=== PATIENT | female | born 1990 | race Caucasian/White ===

== ENCOUNTER → 2018-08-03 12:17 | Outpatient (CLI) | payer OTHER, SELFPAY ==
[2018-08-04 06:07] LABS: HEPATITIS B SURFACE AG Negative (Negative); Hepatitis A AB, Total Negative (Negative); Hepatitis A IgM Antibody Negative (Negative); Hepatitis B Core AB IgM Negative (Negative); Hepatitis B Core Ab Total Negative (Negative); Hepatitis C Ab <0.1 s/co ratio (0.0-0.9)
[2018-08-04 13:23] LABS: Hep B Surface Antibodies Reactive (.)
== END ==
DX: R94.5 Abnormal results of liver function studies (principal)
CPT/HCPCS: 36415; 86704; 86705; 86706; 86708; 86709; 86803; 87340

== ENCOUNTER → 2018-10-04 | Outpatient (CLI) | payer OTHER, SELFPAY ==
[2018-10-04 08:10] VITALS: BMI 22.1
[2018-10-04 17:36] LABS: Chlamydia Trachomatis by PCR Negative (Negative); Neisserai gonorrhoeae by PCR Negative (Negative); Probe Check PASS; Sample Adequacy Control PASS; Specimen Processing Control PASS
== END | disposition home or self-care (01) ==
LOC: LABSPEC 13:45
PROVIDERS: Referring Provider Nurse Practitioner Women's Health; Visit Provider Nurse Practitioner Women's Health
DX: N87.1 Moderate cervical dysplasia (principal); Z11.3 Encounter for screening for infections with a predominantly sexual mode of transmission
CPT/HCPCS: 87491; 87591; 87624; 88175; G0145

== ENCOUNTER → 2018-11-22 12:37 | Outpatient (CLI) | payer OTHER, SELFPAY ==
--- NOTE | 2018-11-22 | IMM_PTH ---
PATIENT: EDWIN WALL LOC: [facility] U#:[id number] AGE/SX: 34/F ROOM: RE11/22/[address]: Dr. Anika Damon MD : 1990 BED: DIS: SPEC #: [id number] RECD: 11/23/18 13:34 STATUS: ELISHA REQ #: [id number] YANG: 11/22/18 00:[address]: Anika Damon DEPT: IMMUNOHISTOCHEMISTRY RECD BY: Kassy Bronson ENTERED: 11/23/18 13:36 SP TYPE: IMMUNO OTHR DR: No Primary Care Phys Tissues: A - Uterine cervix, NOS B - Uterine cervix, NOS Procedures: p16 (initial) KI-67 (add) PHYSICIAN & INSTITUTION [place] [id number] SPECIMEN INFORMATION: Tissue Source: A - Cervix 2 o'clock, B - Cervix 4 o'clock Clinical Info: Abnormal pap Specimen Number: [id number] A & B CPT code: 44418 x2, 04655 x2 METHODOLOGY: Deparaffinized sections of prefer/formalin-fixed tissue or PAP/DQ stained slides are incubated with monoclonal/polyclonal antibodies/oligonucleotide probes. Localization is made via biotin free immunoperoxidase method. Appropriate controls are performed and reacted as expected. Results on target cell population are indicated in the following table: RESULTS: ANTIBODY / CLONE RESULT Block A P16 (E6H4) positive, focal and patchy* Ki-67 (30-9) positive, low * focal minimal block staining is also noted. Block B P16 (E6H4) positive, focal and patchy Ki-67 (30-9) positive, low These tests were developed and their performance characteristics determined by [facility]. They may not have been cleared or approved by the [place]. Food and Drug Administration. The FDA has determined that such clearance or approval is not necessary. INTERPRETATION: A. Cervix, 2 o'clock, biopsy: Mild squamous dysplasia. B. Cervix, 4 o'clock, biopsy: Mild squamous dysplasia. SJ:gila 11/24/18 Case has been reviewed in consultation with Dr. Hastings who concurs with the above diagnosis. IDC:AM
--- NOTE | 2018-11-22 | CER_PTH ---
PATIENT: EDWIN WALL [facility][id number] AGE/SX: 34/F ROOM: RE11/22/[address]: Dr. Anika Damon MD : 1990 BED: DIS: SPEC #: [id number] RECD: 11/22/18 12:34 STATUS: ELISHA CHAYA #: [id number] YANG: 11/22/18 00:[address]: Anika Damon DEPT: SURGICAL PATHOLOGY RECD BY: Hetal Shrestha ENTERED: 11/22/18 13:18 SP TYPE: CERV OT DR: Roxana Primary Care Phys Tissues: A - Uterine cervix, NOS B - Uterine cervix, NOS Procedures: Surgery Specimen Level IV HEADER OPERATION: Colposcopy PRE-OP DIAGNOSIS: Abnormal pap TISSUE SUBMITTED: A. 2 o'clock, B. 4 o'clock MICROSCOPIC DIAGNOSIS A. 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 See comment. B. 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 Chronic inflammation. See comment. JAYSHREE:gila 11/23/18 COMMENT A & B. Immunohistochemistry ([id number]) for surrogate HPV marker (p16) supports the above diagnosis. This case has been reviewed in consultation with Dr. Hastings who concurs with the above diagnosis. MICROSCOPIC DESCRIPTION Slides are reviewed. GROSS DESCRIPTION A - Received in fixative is one container labeled with the patient's name and designated 2 o'clock. The specimen consists of one irregular fragment of light faith soft tissue that measures 0.3 x 0.3 x 0.1 cm. The specimen is totally submitted in one cassette. B - Received in fixative is one container labeled with the patient's name and designated 4 o'clock. The specimen consists of one irregular fragment of light faith soft tissue that measures 0.5 x 0.2 x 0.1 cm. The specimen is totally submitted in one cassette. / SJ:gila 11/22/18 TC: CPT: 26044 x2
[2018-11-22 08:57] VITALS: BMI 21.9
== END ==
PROVIDERS: Referring Provider Obstetrics & Gynecology; Visit Provider Obstetrics & Gynecology
DX: N87.0 Mild cervical dysplasia (principal)
CPT/HCPCS: 88305; 88341; 88342